=== PATIENT | female | born 1990 | race Caucasian/White ===

== ENCOUNTER 2021-01-19 17:55 | Observation (INO) | payer OTHER, SELFPAY ==
[2021-01-19 18:15] VITALS: BMI 38.4
[2021-01-19 18:39] VITALS: BP 126/68; PULSE 100
[2021-01-19 19:01] VITALS: BP 123/70; PULSE 94
[2021-01-19 19:09] LABS: Add Urine Microscopic? YES; Appearance Urine Cloudy (Clear); Bacteria Urine Trace /hpf; Bilirubin Urine Negative (Negative); Blood Urine Negative (Negative); Color Urine Yellow (Yellow); Glucose Urine UA Negative (Negative); Ketones Urine Negative (Negative); Leukocyte Esterase Ur 3+ LEU/UL (Negative); Mucus Urine Rare /lpf; Nitrate Urine Negative (Negative); Protein Urine 1+ mg/dL (Negative); Specific Grav Ur 1.018 (1.001-1.035); Squamous Epithelial Cell Urine Moderate /hpf (Few); Urobilinogen Urine Negative mg/dL (<2.0); WBC Urine 0-3 /hpf
[2021-01-19] MEDS: NIFEdipine 30 MG TAB.ER.24 PO (19:42)
[2021-01-19 20:01] VITALS: BP 124/73; PULSE 93
[2021-01-19 20:31] VITALS: BP 119/72; PULSE 86
[2021-01-19] MEDS: TERBUTALINE SULFATE 1 MG/ML VIAL 0.25 MG SUB-Q (21:43)
--- NOTE | 2021-02-12 09:57 | PM.OBTRLD ---
OB - Triage/Final Diagnosis Visit Information Comments/Additional reasons for admission: I have assessed the risk for this patient, Beth Palma, and determined that she would benefit from observation care. Evaluation Laboratory results: Laboratory Tests 01/19/21 18:52 Urine Color Yellow Urine Appearance Cloudy H Urine pH 8.0 Ur Specific [place] 1.018 Urine Protein 1+ H Urine Glucose (UA) Negative Urine Ketones Negative Ur Blood (Man) Negative Urine Nitrate Negative Urine Bilirubin Negative Urine Urobilinogen Negative Leukocyte Esterase Rfl 3+ H Urine RBC 3-5 H Urine WBC 0-3 Ur Squamous Epith Cells Moderate H Urine Bacteria Trace Urine Mucus Rare Final Diagnosis (1) False labor: Code(s): O47.9 - False labor, unspecified Status: Acute
== END 2021-01-19 22:50 | disposition home or self-care (01) ==
PROVIDERS: Admitting Provider Obstetrics & Gynecology; PCP Family Medicine; Visit Provider Obstetrics & Gynecology
DX: O47.9 False labor, unspecified (principal); Z3A.00 Weeks of gestation of pregnancy not specified
CPT/HCPCS: 81001; 84112; 96372; A9270; G0378; G0379; J3105

== ENCOUNTER 2021-01-23 16:47 | Observation (INO) | payer OTHER, SELFPAY ==
[2021-01-23 17:29] VITALS: TEMP 36.6
[2021-01-23 17:33] VITALS: BP 130/67; PULSE 97
[2021-01-23 17:45] VITALS: BP 120/71; PULSE 97
[2021-01-23 18:00] VITALS: BP 123/62; PULSE 95
[2021-01-23 18:00] LABS: Basophils Percent Auto 0.5 % (0.2-1.2); Eosinophils Absolute Auto 0.1 K/mm3 (0-0.3); Eosinophils Percent Auto 1.2 % (0-4.4); Hematocrit 32.3 % (37.0-47.0); Hemoglobin 10.7 g/dL (12.0-15.0); Immature Granulocyte Absolute 0.08 K/mm3 (0.00-0.031); Immature Granulocyte Percent A 0.9 % (0-0.5); Lymphocytes Absolute Auto 1.44 K/mm3 (0.9-3.2); Lymphocytes Percent Auto 16.9 % (18.3-44.2); Mean Corpuscular HGB Conc 33.1 g/dl (32-36); Mean Corpuscular Hemoglobin 29.8 pg (26-34); Mean Platelet Volume 10.4 fl (7.4-10.4); Monocytes Absolute Auto 0.5 K/mm3 (0.1-0.6); Monocytes Percent Auto 6.2 % (2.6-8.5); Neutrophils Absolute Auto 6.3 K/mm3 (1.3-6.7); Neutrophils Percent Auto 74.3 % (45.5-73.1); Platelet Count Result 146 k/mm3 (150-375); Red Blood Count 3.59 M/mm3 (4.2-5.4); Red Cell Distribution Width 13.5 % (11.5-14.5); White Blood Count 8.5 K/mm3 (4.5-10.0)
[2021-01-23 18:07] LABS: Alanine Aminotransferase 9 U/L (4-35); Albumin Level 3.5 g/dL (3.5-5.1); Alkaline Phosphatase 77 U/L (38-126); Anion Gap 3 mmol/L (8-16); Aspartate Amino Transferase 13 U/L (14-36); Bilirubin,Total 0.2 mg/dL (0.2-1.3); Blood Urea Nitrogen 12 mg/dL (7-17); Calcium 8.8 mg/dL (8.4-10.2); Carbon Dioxide 27 mmol/L (22-30); Chloride 106 mmol/L (98-107); Estimated Glomerular Filt Rate > 60; Glucose 84 mg/dL (65-105); Potassium 3.6 mmol/L (3.4-5.0); Sodium 136 mmol/L (137-145); Uric Acid 3.1 mg/dL (2.5-7.5)
[2021-01-23 18:08] LABS: Add Urine Microscopic? YES; Appearance Urine Cloudy (Clear); Bacteria Urine Trace /hpf; Bilirubin Urine Negative (Negative); Blood Urine Negative (Negative); Color Urine Yellow (Yellow); Glucose Urine UA Negative (Negative); Ketones Urine Negative (Negative); Leukocyte Esterase Ur 3+ LEU/UL (NEGATIVE); Mucus Urine Rare /lpf; Nitrate Urine Negative (Negative); Protein Urine 1+ mg/dL (Negative); RBC Urine 0-2 /hpf (0-2); Squamous Epithelial Cell Urine Many /hpf (Few); Transitional Epi Cells Urine Rare /hpf (None Seen); WBC Urine 0-3 /hpf (0-3)
[2021-01-23 18:15] VITALS: BP 126/67; PULSE 90; RESP 18; TEMP 36.3
[2021-01-23 18:28] VITALS: BMI 37.4
[2021-01-23 18:30] VITALS: BP 121/66; PULSE 95
[2021-01-23 18:40] LABS: Creatinine Urine 155.4 mg/dL; Total Protein Urine Random 11 mg/dL; Ur Ttl Prot Creatinine Ratio 0.07 mg/mg (0-0.20)
--- NOTE | 2021-02-06 11:30 | PM.OBTRLD ---
OB - Triage/Final Diagnosis Visit Information Comments/Additional reasons for admission: I have assessed the risk for this patient, Beth Palma, and determined that she would benefit from observation care. Evaluation Laboratory results: Laboratory Tests 01/23/21 01/23/21 01/23/21 17:45 17:45 17:45 WBC 8.5 RBC 3.59 L Hgb 10.7 L Hct 32.3 L MCV 90.0 MCH 29.8 MCHC 33.1 RDW 13.5 Plt Count 146 L MPV 10.4 Immature Gran % (Auto) 0.9 H Neut % (Auto) 74.3 H Lymph % (Auto) 16.[address] [place] % (Auto) 6.2 Eos % (Auto) 1.2 Baso % (Auto) 0.5 Lymph # (Auto) 1.44 [place] # (Auto) 0.5 Eos # (Auto) 0.1 Baso # (Auto) 0.0 Abs Immat Gran (auto) 0.08 H Absolute Neuts (auto) 6.3 Absolute Nucleated RBC 0.0 Nucleated RBC % 0.0 Sodium 136 L Potassium 3.6 Chloride 106 Carbon Dioxide 27 Anion Gap 3 L BUN 12 Creatinine 0.60 L Estim Creat Clear Calc Not Reportable Estimated GFR > 60 Glucose 84 Uric Acid 3.1 Calcium 8.8 Total Bilirubin 0.2 AST 13 L ALT 9 Alkaline Phosphatase 77 Total Protein 6.0 L Albumin 3.5 Urine Color Yellow Urine Appearance Cloudy H Urine pH 7.0 Ur Specific [place] 1.030 Urine Protein 1+ H Urine Glucose (UA) Negative Urine Ketones Negative Ur Blood (Man) Negative Urine Nitrate Negative Urine Bilirubin Negative Urine Urobilinogen 2.0 H Ur Leukocyte Esterase 3+ H Urine RBC 0-2 Urine WBC 0-3 Ur Squamous Epith Cells Many H Ur Transition Epith Cell Rare Urine Bacteria Trace Urine Mucus Rare U Random Total Protein Urine Creatinine Protein/Creat Ratio 2 01/23/21 17:45 WBC RBC Hgb Hct MCV MCH MCHC RDW Plt Count MPV Immature Gran % (Auto) Neut % (Auto) Lymph % (Auto) [place] % (Auto) Eos % (Auto) Baso % (Auto) Lymph # (Auto) [place] # (Auto) Eos # (Auto) Baso # (Auto) Abs Immat Gran (auto) Absolute Neuts (auto) Absolute Nucleated RBC Nucleated RBC % Sodium Potassium Chloride Carbon Dioxide Anion Gap BUN Creatinine Estim Creat Clear Calc Estimated GFR Glucose Uric Acid Calcium Total Bilirubin AST ALT Alkaline Phosphatase Total Protein Albumin Urine Color Urine Appearance Urine pH Ur Specific [place] Urine Protein Urine Glucose (UA) Urine Ketones Ur Blood (Man) Urine Nitrate Urine Bilirubin Urine Urobilinogen Ur Leukocyte Esterase Urine RBC Urine WBC Ur Squamous Epith Cells Ur Transition Epith Cell Urine Bacteria Urine Mucus U Random Total Protein 11 Urine Creatinine 155.4 Protein/Creat Ratio 2 0.07 Final Diagnosis (1) Edema during : Code(s): O12.00 - Gestational edema, unspecified trimester Status: Acute
== END 2021-01-23 19:06 | disposition home or self-care (01) ==
PROVIDERS: Advanced Practice Midwife; Admitting Provider Obstetrics & Gynecology; PCP Family Medicine; Visit Provider Obstetrics & Gynecology
DX: O12.02 Gestational edema, second trimester (principal); Z3A.27 27 weeks gestation of pregnancy
CPT/HCPCS: 36415; 80053; 81001; 82570; 84156; 84550; 85025; 87086; 87088; G0378; G0379

== ENCOUNTER → 2021-02-02 06:56 | Outpatient (CLI) | payer OTHER, SELFPAY ==
[2021-02-02 17:02] LABS: SARS-CoV-2 RNA PCR Negative
== END ==
PROVIDERS: PCP Family Medicine; Visit Provider Obstetrics & Gynecology
DX: R68.89 Other general symptoms and signs (principal); Z20.822 Contact with and (suspected) exposure to COVID-19
CPT/HCPCS: C9803; U0003; U0005

== ENCOUNTER 2021-02-20 08:50 | Observation (INO) | payer OTHER, SELFPAY ==
[2021-02-20 09:05] VITALS: BMI 38.7
[2021-02-20] MEDS: NIFEdipine 30 MG TAB.ER.24 PO (09:49)
[2021-02-20 10:07] LABS: Add Urine Microscopic? YES; Appearance Urine Cloudy (Clear); Bacteria Urine Trace /hpf; Bilirubin Urine Negative (Negative); Blood Urine Negative (Negative); Color Urine Yellow (Yellow); Glucose Urine UA Negative (Negative); Ketones Urine Negative (Negative); Leukocyte Esterase Ur 3+ LEU/UL (Negative); Mucus Urine Few /lpf; Nitrate Urine Negative (Negative); Protein Urine 1+ mg/dL (Negative); Specific Grav Ur 1.021 (1.001-1.035); Squamous Epithelial Cell Urine Many /hpf (Few); WBC Urine 21-30 /hpf
--- NOTE | 2021-02-20 13:49 | OBADM ---
This patient, Beth Palma, admitted to the OB room OB Post 117 for observation. Patient/family oriented to hospital policies and general routines including ID bracelet, bed and alarms, visiting hours, pain management, procedures, bathroom and other care routines, personal items, smoking policy, room service/diet, call light, and visiting hours. Patient/Family are encouraged to report perceived risks to care and to ask questions if they do not understand what they are told or what they should do.
--- NOTE | 2021-03-16 16:36 | P.PNOB_ITS ---
OB - Triage/Final Diagnosis Visit Information Comments/Additional reasons for admission: I have assessed the risk for this patient, Beth Palma, and determined that she would benefit from observation care. Evaluation Laboratory results: Laboratory Tests 02/20/21 09:55 Urine Color Yellow Urine Appearance Cloudy H Urine pH 7.0 Ur Specific [place] 1.021 Urine Protein 1+ H Urine Glucose (UA) Negative Urine Ketones Negative Ur Blood (Man) Negative Urine Nitrate Negative Urine Bilirubin Negative Urine Urobilinogen 4.0 H Leukocyte Esterase Rfl 3+ H Urine RBC 3-5 H Urine WBC 21-30 H Ur Squamous Epith Cells Many H Urine Bacteria Trace Urine Mucus Few H Final Diagnosis (1) False labor: Code(s): O47.9 - False labor, unspecified Status: Acute
== END 2021-02-20 11:22 | disposition home or self-care (01) ==
PROVIDERS: Advanced Practice Midwife; Admitting Provider Obstetrics & Gynecology; PCP Family Medicine; Visit Provider Obstetrics & Gynecology
DX: O47.03 False labor before 37 completed weeks of gestation, third trimester (principal); Z3A.31 31 weeks gestation of pregnancy
CPT/HCPCS: 81001; 84112; 87086; 87088; A9270; G0378; G0379

== ENCOUNTER 2021-03-07 11:24 | Observation (INO) | payer OTHER, SELFPAY ==
[2021-03-07] VITALS (8 sets, daily range): BP systolic 104–114; BP diastolic 52–70; PULSE 90–105; TEMP 36.6
[2021-03-07 13:53] LABS: Fetal Fibronectin Positive
--- NOTE | 2021-03-07 14:43 | OBADM ---
This patient, Beth Palma, admitted to the OB room OB Post 112 for observation. Patient/family oriented to hospital policies and general routines including ID bracelet, bed and alarms, visiting hours, pain management, procedures, bathroom and other care routines, personal items, smoking policy, room service/diet, and visiting hours. Patient/Family are encouraged to report perceived risks to care and to ask questions if they do not understand what they are told or what they should do.
[2021-03-07] MEDS: BETAMETHASONE SOD PHOS/ACETATE 30 MG/5 ML VIAL 12 MG IM (15:32)
--- NOTE | 2021-03-10 12:58 | PM.OBTRLD ---
OB - Triage/Final Diagnosis Visit Information Comments/Additional reasons for admission: I have assessed the risk for this patient, Beth Palma, and determined that she would benefit from observation care. Evaluation Laboratory results: Laboratory Tests 03/07/21 12:53 Fibronectin Positive Final Diagnosis (1) False labor: Code(s): O47.9 - False labor, unspecified Status: Acute (2) Twin : Code(s): O30.009 - Twin , unspecified number of placenta and unspecified number of amniotic sacs, unspecified trimester Status: Acute
== END 2021-03-07 15:45 | disposition home or self-care (01) ==
PROVIDERS: Admitting Provider Obstetrics & Gynecology; PCP Family Medicine; Visit Provider Obstetrics & Gynecology
DX: O47.03 False labor before 37 completed weeks of gestation, third trimester (principal); O30.003 Twin pregnancy, unspecified number of placenta and unspecified number of amniotic sacs, third trimester; Z3A.33 33 weeks gestation of pregnancy
CPT/HCPCS: 82731; 96372; G0378; G0379; J0702

== ENCOUNTER 2021-03-08 15:20 | Outpatient (CLI) | payer OTHER, SELFPAY ==
[2021-03-08] MEDS: BETAMETHASONE SOD PHOS/ACETATE 30 MG/5 ML VIAL 12 MG IM (15:41)
== END 2021-03-08 15:21 | disposition home or self-care (01) ==
LOC: ANHOBOP 15:33
PROVIDERS: PCP Family Medicine; Visit Provider Obstetrics & Gynecology
DX: O60.00 Preterm labor without delivery, unspecified trimester (principal); Z3A.00 Weeks of gestation of pregnancy not specified
CPT/HCPCS: 96372; J0702

== ENCOUNTER 2021-03-14 14:54 | Observation (INO) | payer OTHER, SELFPAY ==
[2021-03-14 15:47] VITALS: BP 123/70; PULSE 105
[2021-03-14] MEDS: LACTATED RINGERS 1,000 ML 125 ML IV CONT (16:15)
[2021-03-14 16:56] VITALS: BMI 39.6
--- NOTE | 2021-03-17 07:40 | PM.OBTRLD ---
OB - Triage/Final Diagnosis Visit Information Comments/Additional reasons for admission: I have assessed the risk for this patient, Beth Palma, and determined that she would benefit from observation care. Final Diagnosis (1) contractions: Code(s): O47.9 - False labor, unspecified Status: Acute
== END 2021-03-14 17:32 | disposition home or self-care (01) ==
PROVIDERS: Admitting Provider Obstetrics & Gynecology; PCP Family Medicine; Visit Provider Obstetrics & Gynecology
DX: O47.03 False labor before 37 completed weeks of gestation, third trimester (principal); Z3A.34 34 weeks gestation of pregnancy
CPT/HCPCS: 96360; G0378; G0379; J7120

== ENCOUNTER 2021-03-15 19:26 | Inpatient (IN) | payer OTHER, SELFPAY ==
[2021-03-15] VITALS (45 sets, daily range): BP systolic 98–137; BP diastolic 53–82; PULSE 63–108; RESP 12–22; TEMP 36.2–36.8; O2SAT 98–100; BMI 40.0
--- NOTE | 2021-03-15 19:26 | LDADM ---
This patient, Beth Palma, was admitted to OB 2nd Floor Room 288 on 03/15/21 at 21:12. Plans for labor, pain management and were discussed with patient. Patient/family oriented to hospital policies and general routines including ID bracelet, bed and alarms, visiting hours, pain management, procedures, bathroom and other care routines, personal items, smoking policy, room service/diet and guest tray routines, infant security routines, and visiting hours. Patient/Family are encouraged to report perceived risks to care and to ask questions if they do not understand what they are told or what they should do. See OBIX for further documentation.
[2021-03-15] MEDS: NIFEdipine 10 MG CAPSULE PO (20:17)
--- NOTE | 2021-03-15 21:23 | WPDANESEPP ---
Anes - Eval Pre Procedure Procedure: Operation Date: 03/15/21 21:15 Proposed Procedures p Section - Bi Bates MD Date/Time: 03/15/21 21:23 Pre Op Diagnosis: Contractions, Twin gestation Patient Data Age: 30 Gender: F Height: Weight: Last Vital Signs Pulse 107 H 03/15/21 21:00 BP 128/82 03/15/21 21:00 Pulse Ox 99 03/15/21 21:20 Allergies Allergy/AdvReac Type Severity Reaction Status Date / Time No Known Allergies Allergy Verified 01/19/21 19:40 Home Medications Medication Instructions Recorded Confirmed Type 1 tablet PO DAILY 01/23/21 01/23/21 History nifedipine 30 mg PO Q12-24H 01/23/21 01/23/21 History Patient hx anesthesia problems: none Family hx anesthesia problems: none Exam Day of Procedure 03/15/21 21:23 Patient weight: overweight Heart: regular rate and rhythm Lungs: clear to auscultation and normal air movement Airway: Mallampati scale class II Neurological: alert and oriented
--- NOTE | 2021-03-15 21:24 | WPDANESEFPP ---
Anes - Eval Final PreProcedure Day of Procedure 03/15/21 21:24 Patient weight: overweight Heart: regular rate and rhythm Lungs: clear to auscultation and normal air movement Airway: Mallampati scale class II Neurological: alert and oriented ASA classification: II Emergent: yes Anesthetic plan: proceed Anesthesia type and monitoring: regional spinal and standard monitoring Informed Consent: The patient's anesthetic plan and its attendant risks and benefits were discussed with the patient/family/POA. Questions were solicited and answers provided to the satisfaction of the patient/family/POA.
[2021-03-15 21:29] LABS: Basophils Percent Auto 0.3 % (0.2-1.2); Eosinophils Absolute Auto 0.1 K/mm3 (0-0.3); Eosinophils Percent Auto 1.4 % (0-4.4); Hematocrit 35.3 % (37.0-47.0); Hemoglobin 11.7 g/dL (12.0-15.0); Immature Granulocyte Absolute 0.07 K/mm3 (0.00-0.031); Immature Granulocyte Percent A 0.7 % (0-0.5); Lymphocytes Absolute Auto 1.87 K/mm3 (0.9-3.2); Lymphocytes Percent Auto 18.6 % (18.3-44.2); Mean Corpuscular HGB Conc 33.1 g/dl (32-36); Mean Corpuscular Hemoglobin 28.3 pg (26-34); Mean Corpuscular Volume 85.5 fl (80-100); Monocytes Absolute Auto 0.6 K/mm3 (0.1-0.6); Monocytes Percent Auto 6.2 % (2.6-8.5); Neutrophils Absolute Auto 7.3 K/mm3 (1.3-6.7); Neutrophils Percent Auto 72.8 % (45.5-73.1); Platelet Count Result 166 k/mm3 (150-375); Red Blood Count 4.13 M/mm3 (4.2-5.4); White Blood Count 10.1 K/mm3 (4.5-10.0)
[2021-03-15] MEDS: LACTATED RINGERS 1,000 ML 125 ML IV CONT (21:29)
--- NOTE | 2021-03-15 21:34 | PM.IMHP ---
H&P: HPI History of Present Illness Date/Time: 03/15/21 21:34 This patient is a 30-year-old 6 para 4014 at 34 weeks gestation. She has a twin gestation at is in labor. Both twins are transverse. She denies any vaginal bleeding or loss of fluid. She reports good movement. She denies any nausea, vomiting, fever, chills. She has repetitive painful contractions. She is having pelvic pressure. She denies any chest pain or shortness of breath. Chief Complaint: active labor Review of Systems Constitutional: Constitutional: Reports no additional constitutional complaints, Denies fatigue, Denies headache(s), Denies lethargy and Denies weakness Eyes: Eyes: Reports no additional eye complaints, Denies blurry vision and Denies photophobia ENT: Reports as per HPI, Denies headache(s) and Denies neck pain Cardiovascular: Cardiovascular: Denies chest pain, Denies diaphoresis, Denies leg edema, Denies palpitations and Denies dyspnea Respiratory: Respiratory: Denies hemoptysis, Denies dyspnea and Denies wheezing Gastrointestinal: Gastrointestinal: Denies abdominal pain, Denies melena, Denies bloating, Denies hematochezia, Denies nausea and Denies vomiting Genitourinary: Genitourinary: Reports no additional female genitourinary complaints Musculoskeletal: Musculoskeletal: Denies joint swelling, Denies neck pain, Denies numbness and Denies stiffness Neurologic: Denies Abnormal speech present, Denies confusion, Denies headache(s), Denies numbness and Denies weakness Psychiatric: Psychiatric: Denies anxiety, Denies confusion, Denies depression, Denies homicidal ideation and Denies suicidal ideation Endocrine: Endocrine: Denies fatigue and Denies palpitations Allergic/Immunologic: Allergic/Immunologic: Denies wheezing Meds Home Medications and Allergies Home Medications Medication Instructions Recorded Confirmed Type 1 tablet PO DAILY 01/23/21 01/23/21 History nifedipine 30 mg PO Q12-24H 01/23/21 01/23/21 History Allergies Allergy/AdvReac Type Severity Reaction Status Date / Time No Known Allergies Allergy Verified 01/19/21 19:40 Vital Signs Vital Signs - 24 hr 03/15/21 20:15 03/15/21 20:20 03/15/21 20:25 Pulse Rate 107 H Blood Pressure 136/76 Pulse Oximetry 99 100 99 03/15/21 20:30 03/15/21 20:35 03/15/21 20:40 Pulse Rate 100 Blood Pressure 135/75 Pulse Oximetry 98 99 99 03/15/21 20:45 03/15/21 20:50 03/15/21 20:55 Pulse Rate 108 H Blood Pressure 137/79 Pulse Oximetry 99 98 99 03/15/21 21:00 03/15/21 21:05 03/15/21 21:10 Pulse Rate 107 H Blood Pressure 128/82 Pulse Oximetry 99 100 100 03/15/21 21:15 03/15/21 21:20 03/15/21 21:25 Pulse Rate Blood Pressure Pulse Oximetry 100 99 100 03/15/21 21:30 Pulse Rate Blood Pressure Pulse Oximetry 99 Exam Const: General: healthy appearing, comfortable and no acute distress; No confusion Orientation/consciousness: No confusion Eyes: Direct Ophthalmoscopy: No photophobia Resp: Auscultation: clear to auscultation bilaterally, no rales, no rhonchi and no wheezes Cardio: Rate: regular rate Heart sounds: no click, no murmurs and no rubs GI: Inspection: non-distended GI Palp: No abdominal tenderness Auscultation: normal bowel sounds Neuro: General: No confusion Speech: No Abnormal speech present Extrem: General: normal to inspection, no pedal edema and no calf tenderness H&P: Results Labs Labs: Short CBC 03/15/21 Range/Units 21:24 WBC 10.1 H (4.5-10.0) K/mm3 Hgb 11.7 L (12.0-15.0) g/dL Hct 35.3 L (37.0-47.0) % Plt Count 166 (150-375) k/mm3 Assessment and Plan Assessment and plan (1) Twin : Code(s): O30.009 - Twin , unspecified number of placenta and unspecified number of amniotic sacs, unspecified trimester Status: Acute (2) labor: Code(s): O60.00 - labor without delivery, unspecified trim
--- NOTE | 2021-03-15 21:37 | WPDHPUPDATE1 ---
History and Physical Update Update Date/Time: 03/15/21 21:37 History and Physical has been reviewed, including an updated exam of the patient. There are NO changes in the patient's condition. Risks, benefits, and alternatives have been discussed and questions answered. Patient agrees to proceed with procedure.
[2021-03-15] MEDS: ceFAZolin 2 GM/D5W 50 ML 2 GM/50 ML BAG IVPB (22:13)
--- NOTE | 2021-03-15 22:59 | PM.PROC ---
Procedure Note - Detailed Date of procedure: 03/15/21 Pre-op diagnosis: Contractions, Twin gestation Unwanted fertility, Labor Post-op diagnosis: same Procedure performed: Repeat low-transverse delivery, tubal ligation Description of procedure: The patient was taken the operating room. She was prepped and draped in the dorsal supine position with leftward tilt after induction of spinal anesthetic. When anesthesia was found to be adequate a low-transverse skin incision was made and carried down to the level the fascia with the knife. The fascial incision was made at the midline with a scalpel. The fascial incision was extended laterally with Mireles scissors. The fascia was tented upward superior and inferior with Ashley clamps. The rectus muscles were dissected off bluntly. The rectus muscles at the midline. The preperitoneal fat was dissected bluntly at the superior aspect of the separate the rectus muscles. The peritoneal cavity was entered bluntly in the same area. The peritoneal incision was extended superior and inferior with good position of bladder. Bladder blade was inserted. A low-transverse incision was made on the uterus with the scalpel. It was carried down the level of the amniotic cavity with a knife. The amniotic cavity bluntly. The uterine incision was made laterally with blunt traction. The infant A was delivered breech. The cord was clamped and cut. The was handed off to waiting pediatric staff. Baby B was delivered breech Cord bloods were obtained. The placenta was removed manually. The uterus was exteriorized. Uterus cleared of all clots and debris. Uterus closed in 0 Vicryl in a running locked fashion. An imbricating layer of 0 Vicryl was also placed on the to bolster the closure. Fallopian tube was grasped in the ampullary region with a Citlali. It was raised away from the accompanying vein. A window was created in the broad ligament in this area of the tube. 0 Vicryl was used to ligate the proximal distal ends of the skeletonize region of the tube. The segment of the tube was resected with scissors. The cut surfaces were cauterized. On the contralateral side the procedure was performed identically. The uterus was returned to the abdomen. The gutters were cleared of all clots and debris. The fascia was closed 0 Vicryl in a running fashion. Subcutaneous tissue was irrigated and bleeding areas were cauterized. The skin was closed with subcuticular absorbable paras. The incision was covered with derma cabrera. The patient tolerated the procedure well. She was taken recovery room stable condition. Sponge, lap, needle counts were correct x2. Anesthesia: spinal Surgeon: Bi Bates MD Estimated blood loss (mL): 210 Drains: No Packing: No Pathology: none sent Complications: No immediate complications Condition: stable Disposition: floor Findings: Normal maternal anatomy. Average size infants for GA with normal Apgars.
[2021-03-15] MEDS: ONDANSETRON INJ 4 MG/2 ML VIAL IV PUSH (23:36)
[2021-03-15] MEDS: OXYTOCIN 30 UNITS/NS 500 ML 30 UNITS/500 ML BAG 125 UNITS IV CONT (23:53)
[2021-03-16] VITALS (45 sets, daily range): BP systolic 95–120; BP diastolic 29–93; PULSE 59–90; RESP 14–17; TEMP 35.7–36.9; O2SAT 93–100
[2021-03-16] MEDS: KETOROLAC 30 MG/ML VIAL (*BKC) IV PUSH (00:54)
[2021-03-16] MEDS: fentaNYL CITRATE INJ (*CRX) 100 MCG/2 ML VIAL 25 MCG IV PUSH (04:01)
[2021-03-16] MEDS: METOCLOPRAMIDE HCL INJ 10 MG/2 ML VIAL IV PUSH (04:01)
[2021-03-16] MEDS: diphenhydrAMINE HCl INJ 50 MG/ML VIAL 25 MG IV PUSH (04:02)
[2021-03-16] MEDS: DEXTROSE 5%/0.45% SOD CHL 1,000 ML 125 ML IV CONT (04:13)
[2021-03-16 05:42] LABS: Basophils Percent Auto 0.2 % (0.2-1.2); Eosinophils Percent Auto 0.3 % (0-4.4); Hematocrit 29.1 % (37.0-47.0); Hemoglobin 9.5 g/dL (12.0-15.0); Immature Granulocyte Absolute 0.07 K/mm3 (0.00-0.031); Immature Granulocyte Percent A 0.6 % (0-0.5); Lymphocytes Absolute Auto 1.18 K/mm3 (0.9-3.2); Lymphocytes Percent Auto 9.7 % (18.3-44.2); Mean Corpuscular HGB Conc 32.6 g/dl (32-36); Mean Corpuscular Volume 85.8 fl (80-100); Mean Platelet Volume 10.2 fl (7.4-10.4); Monocytes Absolute Auto 0.6 K/mm3 (0.1-0.6); Monocytes Percent Auto 5.2 % (2.6-8.5); Neutrophils Absolute Auto 10.3 K/mm3 (1.3-6.7); Platelet Count Result 145 k/mm3 (150-375); Red Blood Count 3.39 M/mm3 (4.2-5.4); Red Cell Distribution Width 13.7 % (11.5-14.5); White Blood Count 12.2 K/mm3 (4.5-10.0)
--- NOTE | 2021-03-16 08:05 | P.PNOB_ITS ---
OB - PN: Subj Subjective Date/time seen: 03/16/21 08:05 Patient comments: no complaints, pain well controlled, tolerating diet and flatus present OB - PN: Obj Data Labs CBC & Chem 7: 03/16/21 05:24 Labs: Laboratory Results - last 24 hr 03/15/21 03/15/21 03/16/21 21:24 21:24 05:24 WBC 10.1 H 12.2 H RBC 4.13 L 3.39 L Hgb 11.7 L 9.5 L Hct 35.3 L 29.1 L MCV 85.5 85.8 MCH 28.3 28.0 MCHC 33.1 32.6 RDW 14.0 13.7 Plt Count 166 145 L MPV 10.0 10.2 Immature Gran % (Auto) 0.7 H 0.6 H Neut % (Auto) 72.8 84.0 H Lymph % (Auto) 18.6 9.7 L [place] % (Auto) 6.2 5.2 Eos % (Auto) 1.4 0.3 Baso % (Auto) 0.3 0.2 Lymph # (Auto) 1.87 1.18 [place] # (Auto) 0.6 0.6 Eos # (Auto) 0.1 0.0 Baso # (Auto) 0.0 0.0 Abs Immat Gran (auto) 0.07 H 0.07 H Absolute Neuts (auto) 7.3 H 10.3 H Absolute Nucleated RBC 0.0 0.0 Nucleated RBC % 0.0 0.0 Blood Type A Positive Antibody Screen Negative OB - PN A/P Plan day: 1 Comments: Post Op LTCS - no problems, routine recovery Time Spent With Patient Time: Total time spent is greater than 50% in coordination of care (as documented) at patient's floor/unit and/or counseling patient: Exam Const: General: cooperative, healthy appearing, comfortable and no acute distress Resp: Auscultation: no crackles, no rales, no rhonchi and no wheezes Cardio: Rhythm: regular rhythm Heart sounds: no click and no murmurs GI: Inspection: non-distended Auscultation: normal bowel sounds Extrem: General: normal to inspection, no pedal edema and no calf tenderness
--- NOTE | 2021-03-16 09:15 | PC.NURSE ---
Reviewed breast pump care and usage, pumping schedule, nipple care, and collection and storage of breast milk. Encouraged [id number], breast massage and manual expression to stimulate supply. Assessed patient for correct flange size, placement and draw. Patient verbalizes and demonstrates understanding of instructions.
--- NOTE | 2021-03-16 09:39 | WPDANLDPN2 ---
Anes-Prog Note L&D Date/Time: 03/16/21 09:39 Comfortable throughout: section Neuraxial method: spinal Epidural/Spinal procedure site: clean & non-tender Neuro status: Neuro function grossly intact. Cardiovascular status: normal Respiratory status: normal Airway patency: baseline Mental status: baseline Post-Op hydration status: normal (catheter still in place.) Vital Signs: Last Vital Signs Temp 36.9 C 03/16/21 08:10 Pulse 79 03/16/21 08:10 Resp 16 03/16/21 08:10 BP 107/63 03/16/21 08:10 Pulse Ox 98 03/16/21 08:10 Pain score (VAS): 0 I/O: Intake & Output 03/15/21 03/16/21 03/16/21 23:59 07:59 15:59 Output Total 195 350 Balance -195 -350 Post-procedural complaints: none Patient feedback: Patient satisfied with anesthetic care.
--- NOTE | 2021-03-16 09:40 | WPDANLDNPN2 ---
Anes-Prog Note L&D-Neuraxial Date/Time: 03/16/21 09:40 Neuraxial medications: intrathecal PF morphine Opiod-related complaints: none Patient feedback: Patient satisfied with post-operative pain management.
[2021-03-16 10:14] LABS: Rapid Plasma Reagin Non-Reactive (NonReactive)
[2021-03-16] MEDS: DOCUSATE SODIUM 100 MG CAPSULE PO ×2 (11:06→16:06)
[2021-03-16] MEDS: SIMETHICONE 80 MG TAB.CHEW PO ×2 (11:06→16:06)
[2021-03-16] MEDS: HYDROcodone/acetaminophen (*CRX) 10-325 MG TABLET 1 TAB PO (11:06)
[2021-03-16] MEDS: IBUPROFEN 600 MG TABLET PO ×2 (11:07→19:23)
[2021-03-16] MEDS: MULTIVIT/MIN/PREN/FOL AC/IRON TABLET 1 TAB PO (11:07)
[2021-03-16] MEDS: POLYSACCHARIDE IRON COMPLEX 150 MG CAPSULE PO ×2 (11:07→16:07)
--- NOTE | 2021-03-16 13:39 | PC.NURSE ---
4434 Mother called out for assist with feeding. Consulted with patient, mother reports has been sleepy since . Male is in Level II, mother has only attempted female . Mother reports she has been given and instructed on breast pump. . Discussed stimulation and milk supply, advising to pump after each feeding attempt. Discussed twins. Reviewing it is important for mother to understand both infants will have their own abilities: suck and feeding patterns that may not match. Some mothers prefer to breastfeed separately to give each infant her full individualized attention during to assist with effective latching. Keeping infants on a feeding schedule may be difficult, but it is suggested to feed infants in sequence to allow rest time for mother between feedings. Discussed different approaches of switching infants to breast each feeding or by feeding or day. This will help with stimulate a good milk supply. Stressed nipple care is important, good instruction on mother?s comfort. Freq and effective are important in building a good milk supply. Extra fluids and and/or food is not necessary. Mother should drink to thirst and eat to hunger, including nutritious choices. Reviewed feeding cues, frequencies, duration of feedings, feeding elimination flow sheet, and signs of adequate intake. Demonstrated stimulation techniques to wake for feeding. Assisted with infant to breast. Reviewed positioning/alignment in cross cradle, holding breast in U hold and guided asymmetrical latch on. Female infant was able to latch within a few attempts. Infant nursed for a few weak bursts with long pausing and then fell asleep. FOB will bottle feed infant while mother is working on pumping.
[2021-03-16] MEDS: HYDROcodone/acetaminophen (*CRX) 5-325 MG TABLET 1 TAB PO ×3 (16:06→23:56)
[2021-03-17] MEDS: HYDROcodone/acetaminophen (*CRX) 5-325 MG TABLET 1 TAB PO ×3 (05:44→16:04)
[2021-03-17] MEDS: IBUPROFEN 600 MG TABLET PO ×4 (05:44→22:28)
--- NOTE | 2021-03-17 08:18 | PM.OBPNVD ---
OB - PN: Subj Subjective Date/time seen: 03/17/21 08:18 Patient comments: no complaints, pain well controlled, incisional pain, tolerating diet and flatus present OB - PN: Obj Data Labs CBC & Chem 7: 03/16/21 05:24 Labs: Laboratory Results - last 24 hr 03/15/21 21:24 RPR Non-reactive OB - PN A/P Plan day: 2 Plan: routine care Comments: POD#2 LTCS - no problems, Time Spent With Patient Time: Total time spent is greater than 50% in coordination of care (as documented) at patient's floor/unit and/or counseling patient: Exam Const: General: comfortable, no acute distress and alert Resp: Effort & Inspection: normal respiratory effort Auscultation: no crackles, no rales and no rhonchi Cardio: Rate: regular rate Heart sounds: no click, no murmurs and no rubs GI: Inspection: non-distended GI Palp: No Tenderness to palpation present (GI) Auscultation: normal bowel sounds Other: Incision - CDI Extrem: General: normal to inspection, no pedal edema and no calf tenderness
[2021-03-17 08:20] VITALS: BP 99/62; PULSE 79; RESP 16; TEMP 36.5; O2SAT 99
[2021-03-17] MEDS: DOCUSATE SODIUM 100 MG CAPSULE PO ×2 (11:14→16:03)
[2021-03-17] MEDS: MULTIVIT/MIN/PREN/FOL AC/IRON TABLET 1 TAB PO (11:14)
[2021-03-17] MEDS: POLYSACCHARIDE IRON COMPLEX 150 MG CAPSULE PO ×2 (11:14→16:04)
--- NOTE | 2021-03-17 14:19 | PC.NURSE ---
1000 Consult with pt., mother reports infant is more awake and eagerly most attempts. Mother continues to pump after each feeding and is supplementing after most attempts. Reviewed to limit to breast to 15-20 minutes increasing duration each day. Discussed early infants may tire quickly and have ineffective suckling after 15-20 minutes then be too tired for bottle feeding. Mother is able to independently latch infant correctly. Infant nurses eagerly with rhythmic draws and occasional swallowing noted for bursts followed with long pausing. Mother quickly stimulates while feeding to wake, infant responds with good bursts of effective feeding. Mother continues to pump without difficulties or discomfort. Mother reports male infant transferred has been extubated and now on CPAP
[2021-03-17 19:00] VITALS: BP 130/65; PULSE 89; RESP 16; TEMP 36.7; O2SAT 98
[2021-03-17] MEDS: HYDROcodone/acetaminophen (*CRX) 10-325 MG TABLET 1 TAB PO ×2 (19:02→22:28)
[2021-03-18] MEDS: HYDROcodone/acetaminophen (*CRX) 5-325 MG TABLET 1 TAB PO ×2 (02:29→06:02)
[2021-03-18] MEDS: IBUPROFEN 600 MG TABLET PO (06:02)
--- NOTE | 2021-03-18 07:21 | PM.OBPNVD ---
OB - PN: Subj Subjective Date/time seen: 03/18/21 07:21 Patient comments: no complaints, pain well controlled, tolerating diet and flatus present baby status: doing well OB - PN: Obj Data Labs CBC & Chem 7: 03/16/21 05:24 OB - PN A/P Plan day: 3 Plan: routine care and discharge home (Follow up in 1 week) Time Spent With Patient Time: Total time spent is greater than 50% in coordination of care (as documented) at patient's floor/unit and/or counseling patient: Time with patient: less than 15 minutes Review of Systems Review of Systems: All systems reviewed & are unremarkable except as noted in HPI and below Exam Narrative: Exam Narrative: Fundus firm. Vaginal flow controlled. Incision dry and intact. Negative homans. No redness, warmth, or pain of lower ext. Const: General: comfortable Chest: Breast/axilla inspection: normal inspection of the breasts Resp: Effort & Inspection: normal respiratory effort Auscultation: clear to auscultation bilaterally Cardio: Rate: regular rate GI: GI Palp: Yes Soft to palpation Psych: Appearance: grossly normal Affect: normal affect Attitude: cooperative Thought content: Yes Normal thought content present Judgement: Good judgement present (Psych)
[2021-03-18 08:45] VITALS: PULSE 89; RESP 16; O2SAT 98
[2021-03-18] MEDS: MULTIVIT/MIN/PREN/FOL AC/IRON TABLET 1 TAB PO (09:28)
[2021-03-18] MEDS: POLYSACCHARIDE IRON COMPLEX 150 MG CAPSULE PO (09:28)
[2021-03-18] MEDS: DOCUSATE SODIUM 100 MG CAPSULE PO (09:28)
[2021-03-18] MEDS: SIMETHICONE 80 MG TAB.CHEW PO (09:28)
[2021-03-18] MEDS: HYDROcodone/acetaminophen (*CRX) 10-325 MG TABLET 1 TAB PO (09:29)
[2021-03-20 10:10] VITALS: BP 133/78; PULSE 91; RESP 20; TEMP 36.8; O2SAT 100
--- NOTE | 2021-03-21 07:53 | PM.OBDSVD ---
DS: Admitting Diagnosis Admitting Diagnosis Admitting Diagnosis: Labor DS: Discharge Diagnosis Discharge Diagnosis (1) Twin delivery by : Code(s): O30.009 - Twin , unspecified number of placenta and unspecified number of amniotic sacs, unspecified trimester Status: Acute OB - DS: Summary OB Procedures : None OB Procedures Intrapartum: Spontaneous Vag Delivery OB Procedures: : None Peripartum Data Procedures: Procedures Operation Date: 03/15/21 21:15 Actual Procedure Side Surgeon p Section Not Applicable Bi Bates MD Time Spent with Patient Time attestation: Total time spent providing and/or coordinating discharge services: DS: Data Data Completed and Pending Completed studies during hospitalization: Pending at discharge 03/16/21 00:39 Surgical [PTH] Routine Surgical [PTH] Routine Discharge Plan Discharge Attending physician on discharge: Bi Bates Consulting providers: Dolores Booker Discharging Clinician: Dolores Booker Patient Disposition: Home, Self-Care Activity: pelvic rest Diet: as tolerated Discharge Instructions: Education: Mom and Baby Guide Given to: Mother Follow-Up: Call your delivering provider's office for an appointment to be seen in: 1 Week Mom and baby should come to the [facility] for the follow-up appointment. Appointment Date/Time: March 20, 2021 at 10:00 am What to expect at your follow-up visit: Blood Pressure Check Physical Assessment Call [phone] if you are unable to keep your appointment time. BREAST CARE: * Wear a snug supportive bra. * For engorgement discomfort: Breast Feeding: * Apply warm moist washcloths * Express milk as needed to relieve engorgement * Wear loose clothing * For sore nipples: * Identify correct latch-on * Apply warm moist washcloths before and after nursing * Air dry nipples after nursing * May apply Lansinoh cream to nipples ABDOMINAL INCISION: (if applicable) * Allow incision to air dry * Do NOT use lotions for powders on your incision * When showering, allow soap and water to run over the incision, but do not wash incision EPISIOTOMY/PERINEAL CARE: * Until bleeding stops, use your kallie bottle after urinating * Change your pad frequently throughout the day * No tub baths until seen by your physician - You may shower ACTIVITY: * Rest as much as possible. * Do not exercise or lift anything heavier than your baby (such as laundry or other children.) * Avoid stairs or driving as much as possible. * Do not put anything into the vagina. No douching, tampons, or sexual activity until seen by physician. NOTIFY PHYSICIAN IF YOU HAVE ANY QUESTIONS OR IF ANY OF THE FOLLOWING SYMPTOMS OCCUR: * If your incision becomes red, swollen, or more painful than what you have experienced in the hospital. * If your vaginal bleeding becomes foul smelling. * If your vaginal bleeding becomes more heavy than a period or if your bleeding changes from pink to bright red. However, you may pass an occasional walnut-sized clot once or twice for the first week . * If you experience a sharp, shooting pain in your calves. * If you discover a hard, reddened area on your breast or if you experience flu-like symptoms. DIET: * Eat regular, well-balanced meals. * Drink plenty of fluids daily. If , drink to thirst. Patient Instructions: Antibiotic Form, (DC) Stand Alone Forms: General Discharge Information Follow-up/Referrals: Dolores Booker CNM [Certified Nurse Boat Loader] - 1 Week Discharge Medications: New ibuprofen 600 mg Tablet 600 mg PO Q6H PRN (Reason: Cramping) Qty: 20 RF: 0 hydrocodone-acetaminophen 5-325 mg tablet 1 tablet PO Q4H PRN (Reason: pain) 4 Days Qty: 20 RF: 0 Continued 400 mcg T
== END 2021-03-18 10:30 | disposition home or self-care (01) | DRG 540 ==
LOC: ANHLDR 22:32 → ANHOB2 03-16 02:17
PROVIDERS: Admitting Provider Obstetrics & Gynecology; PCP Family Medicine; Visit Provider Obstetrics & Gynecology
PROC: 10D00Z1 Extraction of Products of Conception, Low, Open Approach (ICD-10-PCS; CPT 59514; principal; 2021-03-15 21:15)
DX: O30.003 Twin pregnancy, unspecified number of placenta and unspecified number of amniotic sacs, third trimester (principal); Z30.2 Encounter for sterilization; O32.1XX1 Maternal care for breech presentation, fetus 1; O32.1XX2 Maternal care for breech presentation, fetus 2; Z3A.34 34 weeks gestation of pregnancy; Z37.2 Twins, both liveborn
CPT/HCPCS: 36415; 84112; 85025; 86592; 86850; 86900; 86901; 88302; 88307; A9270; J0131; J0690; J1200; J1885; J2274; J2370; J2405; J2590; J2765; J3010; J7120

== ENCOUNTER 2021-06-27 10:27 | Emergency (ER) | payer OTHER, SELFPAY ==
[2021-06-27 10:34] VITALS: BP 142/75; PULSE 75; RESP 20; TEMP 36.7; O2SAT 99
--- NOTE | 2021-06-27 10:58 | ED.SKABFB ---
HPI - Skin/Abscess/Foreign Bdy General Chief complaint: Skin/Abscess/Foreign Body Stated complaint: abscess Time Seen by Provider: 06/27/21 10:47 Source: patient and RN notes reviewed Mode of arrival: ambulatory Limitations: no limitations History of Present Illness HPI narrative: Patient presents today complaining of an abscess to her left axilla x2 days. Denies drainage. States it started out the size of a dime and has spread. Denies history of abscesses, staph infections, boils. Currently rates her pain 5/10 and has tried no ymva-stf-yunymso treatment prior to arrival. MD complaint: abscess/boil Related Data Allergies Allergy/AdvReac Type Severity Reaction Status Date / Time No Known Allergies Allergy Verified 01/19/21 19:40 Review of Systems Review of Systems: CONSTITUTIONAL: Denies body aches, fever, chills, or sweats. EYES: Denies visual changes, redness, or discharge. ENT: Denies rhinorrhea, congestion, sore throat, or otalgia. CARDIOVASCULAR: Denies chest pain, palpitations, or edema. RESPIRATORY: Denies cough or dyspnea. GASTROINTESTINAL: Denies abdominal pain, nausea, vomiting, or diarrhea. GENITOURINARY: Denies dysuria or hematuria. SKIN: Denies rash, itching, or wounds.+ Abscess to left axilla MUSCULOSKELETAL: Denies back pain, joint pain, or myalgia. NEUROLOGIC: Denies headache, numbness, tingling, or weakness. PSYCH: Denies depression or anxiety. PMFSH Social History Social History Smoking status: Never smoker Substance use: never Spiritual care concerns: No Comments At time of signature, I have reviewed and agree with nursing past medical, surgical, social and family history unless otherwise noted. Please see nursing chart for further information. There is no relevant family history pertinent to the presenting complaint Exam Narrative: GENERAL: Well-appearing, well-nourished, and in no acute distress. HEAD: Normocephalic, atraumatic. EYES: EOMI. No redness or drainage. Conjunctivae normal. ENT: Mucous membranes pink and moist. NECK: Normal AROM. CHEST: No respiratory distress. EXTREMITIES: Normal range of motion. No edema. SKIN: Warm, dry, no rash. Capillary refill normal. Normal skin turgor. 1.5 cm round fluctuant abscess to the left axilla surrounded in approximately 7 x 7 cm erythema and induration. Tender to palpation. No active drainage. NEURO: No focal deficits. Alert and oriented x3. Gait steady. PSYCH: Normal affect. No signs of depression or anxiety. Course Vital Signs Vital signs: Vital Signs Temperature 98.1 F 06/27/21 10:34 Pulse Rate 75 06/27/21 10:34 Respiratory Rate 20 06/27/21 10:34 Blood Pressure 142/75 H 06/27/21 10:34 Pulse Oximetry 99 06/27/21 10:34 Temperature 98.1 F 06/27/21 10:34 Pulse Rate 75 06/27/21 10:34 Respiratory Rate 20 06/27/21 10:34 Blood Pressure 142/75 H 06/27/21 10:34 Pulse Oximetry 99 06/27/21 10:34 Reviewed. Pt has been instructed to follow up with her PCP regarding her elevated blood pressure today. Procedures Abscess I/D other: Date of Incision: 06/27/21 Time of Incision: 11:01 Side (if applicable): left (Axilla) Sedation/analgesia: none Local Anesthetic: lidocaine 1% Amount of anesthesia used (mL): 2 Technique: incised with #11 blade Amount of fluid expressed (mL): 3 Irrigation: Yes Packing used?: none I&D Results: Pus (Moderate) and Blood Abcess I&D Additional Comments: Dressed with Band-Aid. MDM - Skin/Abscess/Foreign Bdy Differential Diagnosis Differential diagnosis: Likely abscess of skin or subcutaneous tissue, cellulitis, impetigo and contact dermatitis Critical Care Time Critical Care Time Critical Care Time: No Discharge Plan Discharge Clinical Impression: Abscess of axilla, left Patient Disposition: Home, Self-Care Condition: Stable
== END 2021-06-27 11:29 | disposition home or self-care (01) ==
PROVIDERS: Emergency Provider Nurse Practitioner; PCP Family Medicine
DX: L02.412 Cutaneous abscess of left axilla (principal)
CPT/HCPCS: 10060; 99213; G0463

== ENCOUNTER 2021-10-17 00:20 | Day surgery (SDC) | payer OTHER, SELFPAY ==
[2021-10-09 10:59] VITALS: BMI 34.4
--- NOTE | 2021-10-09 11:13 | PC.NURSE ---
Report to the Outpatient Waiting Room, entrance under the green pavilion located off [facility], at time 0830 on date 10/17/21. OR Time: 1030. - You and your visitor will be asked a series of questions to screen for COVID 19 for your protection. - A mask is required within the hospital. - Only one visitor is allowed at this time. Patient visitors will be guided where to wait when not with patient. Preoperative COVID Testing Requirements: No COVID Test needed if: (proof is required; if not received patient will have Rapid Test prior to entry) - Patient has received COVID Vaccine at least 14 days prior to procedure date or - Patient has positive COVID test result within last 90 days of surgery date. COVID Test needed if above criteria is not met If not COVID vaccinated a COVID test must be conducted within 72 hours of surgery and patient is asked to isolate self from time of testing until procedure. You will go to the [facility] for your COVID testing. The [facility] site is located at the corner of [address] [facility]. You will only be called if COVID results are positive and your surgeon may reschedule your elective surgery date. Patients may have clear liquids (water, carbonated beverages, clear teas, apple juice) until 3 hours prior to surgery with a maximum of 20 ounces. - No food from midnight until time of surgery - Infants may have breast milk until 4 hours before surgery, infant formula 6 hours prior to surgery. - Children will be allowed to drink immediately following surgery. If applicable, please bring a bottle or sippy cup to assist with drinking. Juice, water, soda, and popsicles are readily available. For infants on formula, please bring formula the day of surgery. Pacifiers are allowed. Take the following medications with a SIP of water the morning of surgery: n/a Medications to discontinue per physician n/a Date to take last dose n/a Please no make-up, nail kinyarwanda, hairspray, perfume, deodorant, or body powder the day of surgery. No jewelry (including any body piercings) or valuables the day of surgery, leave them at home. Please take a shower or bath the night before, or the morning of, surgery with an antibacterial soap. Wear comfortable, loose fitting clothing. Children are encouraged to wear pajamas. - Jewelry must be removed prior to entering the operating room. Rings and piercings that are not removed may be cut off. - The hospital will not accept responsibility for valuables. - Please leave all valuables, including medications, at home the day of surgery. If you are going home after surgery, a licensed septic pump truck driver must drive you home. - NO public transportation without another adult. - We recommend that an adult stay with you for 24 hours following discharge. - We also recommend that you do not drive, make important decision, drink alcoholic beverages, or take any drugs that were not prescribed by your health care provider for at least 24 hours after your discharge time. For Pediatric surgeries, we recommend two adults accompany the child home (only one inside the building at this time). Follow any additional instructions given to you from your surgeon. Telephone instructions given to Beth Palma and asked if any additional questions and then verbalized understanding. Patient advised to call surgeon office or pre surgery nurse liaison [phone] if any additional questions.
[2021-10-17 08:43] VITALS: BMI 36.1
[2021-10-17] MEDS: ACETAMINOPHEN 500 MG TABLET 1000 MG PO (08:48)
[2021-10-17 08:53] VITALS: BP 126/62; PULSE 68; RESP 16; TEMP 36.6; O2SAT 100
[2021-10-17] MEDS: LACTATED RINGERS 1,000 ML 30 ML IV CONT (09:24)
--- NOTE | 2021-10-17 09:41 | WPDHPUPDATE1 ---
History and Physical Update Update Date/Time: 10/17/21 09:41 History and Physical has been reviewed, including an updated exam of the patient. There are NO changes in the patient's condition. Risks, benefits, and alternatives have been discussed and questions answered. Patient agrees to proceed with procedure.
--- NOTE | 2021-10-17 09:43 | P.PNAN_ITS ---
Anes - Initial Pre Proc Eval Procedure: Operation Date: 10/17/21 10:30 Proposed Procedures p Hysteroscopy, Endometrial Ablation with Aurora - Bi Bates MD Date/Time: 10/17/21 09:43 Surgeon: Bi Bates MD Pre Op Diagnosis: Menorrhagia Patient Data Age: 31 Gender: F Height: 1.78 m Weight: 114.2 kg Last Vital Signs Temp 36.6 C 10/17/21 08:53 Pulse 68 10/17/21 08:53 Resp 16 10/17/21 08:53 BP 126/62 10/17/21 08:53 Pulse Ox 100 10/17/21 08:53 Allergies Allergy/AdvReac Type Severity Reaction Status Date / Time No Known Allergies Allergy Verified 10/17/21 08:36 Home Medications Medication Instructions Recorded Confirmed Type No Home Medications 10/09/21 10/17/21 History Patient hx anesthesia problems: none Family hx anesthesia problems: none Results Review: All pre-operative results and documents have been reviewed as part of the pre-operative evaluation. [facility] Social History Social History Smoking status: Never smoker Alcohol intake: current Substance use: never Living arrangements: with family Spiritual care concerns: No Anes - Eval Final PreProcedure Day of Procedure 10/17/21 09:43 Patient weight: obese Heart: regular rate and rhythm Lungs: clear to auscultation and normal air movement Airway: Mallampati scale class II Neurological: alert and oriented Last oral intake: >/= 8 hours ASA classification: II Emergent: no Anesthetic plan: proceed Anesthesia type and monitoring: general GIVS and standard monitoring Results Review: All pre-operative results and documents have been reviewed as part of the pre-operative evaluation. Informed Consent: The patient's anesthetic plan and its attendant risks and benefits were discussed with the patient/family/POA. Questions were solicited and answers provided to the satisfaction of the patient/family/POA.
--- NOTE | 2021-10-17 09:52 | PM.IMHP ---
H&P: HPI History of Present Illness Date/Time: 10/17/21 09:52 this patient is a 31-year-old female with severe menorrhagia. We will agreed to perform endometrial ablation with hysteroscopy. She understands the risks. She understands that injuries may occur that result in hospitalization, more surgery, and severe illness. She understands procedure in detail. She denies any nausea, vomiting, fever, chills. She denies any chest pain or shortness of breath. Chief Complaint: Menorrhagia Review of Systems Review of Systems: All systems reviewed & are unremarkable except as noted in HPI and below Constitutional: Constitutional: Denies chills, Denies fatigue, Denies fever(s) and Denies weakness Eyes: Eyes: Denies blurry vision, Denies change in vision, Denies loss of peripheral vision, Denies loss of vision, Denies other visual disturbances and Denies eye pain ENT: Denies vertigo, Denies dizziness, Denies hearing loss, Denies mouth pain, Denies nasal obstruction, Denies neck mass and Denies neck pain Cardiovascular: Cardiovascular: Denies chest pain, Denies diaphoresis, Denies syncope, Denies leg edema and Denies dyspnea Respiratory: Respiratory: Denies chest congestion, Denies cough, Denies hemoptysis, Denies dyspnea and Denies wheezing Gastrointestinal: Gastrointestinal: Denies abdominal pain, Denies constipation, Denies diarrhea, Denies nausea and Denies vomiting Genitourinary: Genitourinary: Denies hematuria, Denies change in libido, Denies nocturia, Denies genital lesions, Denies flank pain and Denies urinary urgency Musculoskeletal: Musculoskeletal: Denies abnormal gait, Denies back pain, Denies myalgias, Denies arthralgias, Denies joint swelling, Denies muscle weakness and Denies neck pain Integumentary/Breasts: Skin/Breast: Denies swelling, Denies breast pain, Denies breast mass, Denies dry skin, Denies nipple discharge, Denies unusual bruising and Denies jaundice Neurologic: Denies Neuro-related abnormal movements, Denies Abnormal speech present, Denies abnormal gait, Denies behavioral changes, Denies confusion, Denies vertigo, Denies dizziness, Denies syncope, Denies loss of vision, Denies memory loss, Denies convulsions and Denies weakness Psychiatric: Psychiatric: Denies abnormal sleep pattern, Denies behavioral changes, Denies change in libido, Denies confusion, Denies depression, Denies anhedonia and Denies memory loss Endocrine: Endocrine: Reports no additional endocrine complaints, Denies change in libido and Denies fatigue Hematologic/Lymphatic: Hematologic/Lymphatic: Reports no additional hematologic/lymphatic complaints Allergic/Immunologic: Allergic/Immunologic: Reports no additional allergic/immunologic complaints and Denies wheezing PMF Social History Social History Smoking status: Never smoker Alcohol intake: current Substance use: never Living arrangements: with family Spiritual care concerns: No Meds Home Medications and Allergies Home Medications Medication Instructions Recorded Confirmed Type No Home Medications 10/09/21 10/17/21 History Allergies Allergy/AdvReac Type Severity Reaction Status Date / Time No Known Allergies Allergy Verified 10/17/21 08:36 Vital Signs Vital Signs - 24 hr 10/17/21 08:53 Temperature 97.9 F Pulse Rate 68 Respiratory Rate 16 Blood Pressure 126/62 Pulse Oximetry 100 Exam Const: General: cooperative, healthy appearing, comfortable and no acute distress; No confusion Orientation/consciousness: oriented to person, oriented to place, oriented to time and No confusion HENMT: Head: normal to inspection Ears: external ears normal General nose exam: Normal external nose present Face and sinus: normal facial exam Eyes: General: appearance normal, both eyes and all related structures Neck: Neck: normal visual inspection, trachea midline and supple Resp: Auscultation: clear to a
[2021-10-17] MEDS: KETOROLAC 30 MG/ML VIAL (*BKC) IV PUSH (10:35)
[2021-10-17 10:40] VITALS: BP 118/67; PULSE 75; RESP 16; O2SAT 100
--- NOTE | 2021-10-17 10:43 | W.PM.PROC2 ---
Procedure Note - Detailed Date of Procedure 10/17/21 Pre-op Diagnosis Menorrhagia Post-op Diagnosis same Procedure Performed endometrial ablation with hysteroscopy d&c Surgeon Bi Bates MD Anesthesia MAC Indications Severe menorrhagia Findings Normal vulva vagina and cervix. Normal endometrium. Description of Procedure The patient was taken to the operating room. She was prepped and draped in the dorsal lithotomy position after induction of mac anesthesia. A speculum was placed in the vagina. Cervix grasped with a tenaculum. The cervix was dilated to about 1 cm. The hysteroscope was inserted. The above findings were noted. Endometrial curettage was performed with a medium-size curette. All surfaces of the endometrium were affected by the curettage. The specimens were collected and sent to pathology. Measurements were taken of the uterus and cervix. The uterine length was then entered into the hand piece of the Aurora device. The device was inserted into the intrauterine cavity. The array of the device was expanded. The balloon cuff was inflated. A good seal was achieved. The energy and safety cycles were initiated and completed. The array was collapsed and the instrument was withdrawn after deflating the balloon cuff. Hysteroscope was reinserted. Above findings were noted. The hysteroscope was removed. The patient tolerated the procedure well. The speculum and tenaculum were removed. She was taken to recovery in stable condition. Sponge lap and needle counts were correct x2. Estimated Blood Loss 15 Pathology yes Complications No immediate complications Condition stable Disposition same day
[2021-10-17] MEDS: fentaNYL CITRATE INJ (*CRX) 100 MCG/2 ML VIAL 25 MCG IV PUSH ×4 (10:46→11:04)
[2021-10-17 11:10] VITALS: BP 102/64; PULSE 59; RESP 20
[2021-10-17 11:35] VITALS: BP 100/63; PULSE 74; RESP 20
[2021-10-17] MEDS: oxyCODONE HCL (*CRX) 5 MG TAB IR PO (11:44)
[2021-10-17 12:00] VITALS: BP 103/68; PULSE 60; RESP 20
== END 2021-10-17 12:12 | disposition home or self-care (01) ==
PROVIDERS: PCP Family Medicine; Visit Provider Obstetrics & Gynecology
PROC: 0U5B8ZZ Destruction of Endometrium, Via Natural or Artificial Opening Endoscopic (ICD-10-PCS; CPT 58563; principal; 2021-10-17 10:30)
DX: N92.0 Excessive and frequent menstruation with regular cycle (principal); E66.9 Obesity, unspecified; Z68.36 Body mass index [BMI] 36.0-36.9, adult
CPT/HCPCS: 58563; 88305; A9270; J1885; J2250; J2704; J3010; J7030; J7120